=== PATIENT | female | born 1955 | race Caucasian/White ===

== ENCOUNTER 2023-01-31 15:33 | Emergency (ER) | payer MEDICARE, OTHER ==
[~2023-01-31] VITALS: Ht 160 cm; Wt 80.7 kg
[2023-01-31] MEDS ORDERED: NP THYROID 120120 MG (15:49)
[2023-01-31 19:41] LABS: BASOPHILS 0.9 % (0-2); EOSINOPHILS 4.8 % (0-6); HEMATOCRIT 44.9 % (35.0-50.0); HEMOGLOBIN 14.9 g/dL (12.0-18.0); LYMPHOCYTES 33.5 % (24-44); MCH 28.3 (27-36); MCHC 33.1 g/dl (30-36); MCV 85.5 fl (81-99); MONOCYTES 6.4 % (0-12); NEUTROPHILS 54.4 % (39-80); PLATELET COUNT 395 K/uL (140-440); RBC 5.25 M/ul (4.3-5.7)
[2023-01-31 19:54] LABS: ALBUMIN 3.6 g/dL (3.4-5.0); ALBUMIN/GLOBULIN RATIO 0.84 (1.1-2.4); ANION GAP 10.6 (7-21); BILIRUBIN, TOTAL 0.5 ng/dL (0.2-1.0); BUN/CREATININE RATIO 11.34 (6.0-28.6); CALCIUM 9.4 mg/dL (8.5-10.1); CREATININE, SERUM 0.97 mg/dL (0.55-1.02); POTASSIUM 3.6 mmol/L (3.5-5.1); PROTEIN, TOTAL 7.9 g/dL (6.4-8.2)
[2023-01-31 20:45] LABS: BILIRUBIN, URINE NEGATIVE (negative); BLOOD/HGB, URINE NEGATIVE (Negative); KETONE, URINE TRACE (Negative); LEUK ESTERASE, URINE SMALL (negative); NITRITE, URINE NEGATIVE (negative)
[2023-01-31 20:54] LABS: BACTERIA, URINE NONE SEEN /hpf (negative); CASTS, URINE NONE SEEN \\lpf; COLLECTION TYPE, URINE CLEAN CATCH; CRYSTALS, URINE NONE SEEN (0-1+); EPITHELIAL CELLS, URINE SQUAMOUS 1+ /lpf (0-1+); RED BLOOD CELLS, URINE 0-1 /hpf (0-5); REFLEX CULTURE, URINE No (No)
[2023-02-01 00:15] VITALS: BP 146/79
== END 2023-02-01 00:13 | disposition home or self-care (01) ==
LOC: ED 15:33
DX: K86.9 Disease of pancreas, unspecified (principal); E03.9 Hypothyroidism, unspecified; Z88.2 Allergy status to sulfonamides; Z88.5 Allergy status to narcotic agent; Z91.018 Allergy to other foods; Z91.041 Radiographic dye allergy status
CPT/HCPCS: 36415; 74177; 80053; 81001; 85025; 99284-25; J1200; Q9967

== ENCOUNTER 2023-10-05 21:57 | Observation (INO) | payer OTHER, MEDICARE ==
[~2023-10-05] VITALS: Ht 160 cm; Wt 88.0 kg
[~2023-10-05 21:57] MED LIST: NP THYROID 120120 MG PO
[2023-10-05 22:21] LABS: BASOPHILS 0.8 % (0-2); HEMOGLOBIN 13.8 g/dL (12.0-18.0); LYMPHOCYTES 19.6 % (24-44); MCH 27.8 (27-36); MCHC 33.6 g/dl (30-36); MCV 82.9 fl (81-99); MONOCYTES 5.3 % (0-12); NEUTROPHILS 72.3 % (39-80); PLATELET COUNT 399 K/uL (140-440); RBC 4.95 M/ul (4.3-5.7); RDW 13.3 (10.5-15.0)
[2023-10-05] MEDS ORDERED: HYDROmorphone HCL 1 MG/ML SYR IV PRN (22:30)
[2023-10-05] MEDS ORDERED: ondansetron HCL 4 MG/2 ML VIAL IV ONE (22:30)
[2023-10-05 22:47] LABS: ALBUMIN 3.1 g/dL (3.4-5.0); ALBUMIN/GLOBULIN RATIO 0.72 (1.1-2.4); ALCOHOL, MEDICAL <3 ng/dL (<3); ALKALINE PHOSPHATASE 84 U/L (46-116); ALT (SGPT) 29 U/L (14-59); ANION GAP 11.8 (7-21); AST (SGOT) 27 U/L (15-37); BILIRUBIN, TOTAL 0.3 ng/dL (0.2-1.0); BUN/CREATININE RATIO 11.02 (6.0-28.6); CARBON DIOXIDE 28 mmol/L (21-32); CHLORIDE 104 mmol/L (98-107); CREATINE KINASE 139 U/L (26-192); CREATININE, SERUM 1.27 mg/dL (0.55-1.02); GLOMERULAR FILTRATION RATE,EST 47 mL/min (>60); POTASSIUM 3.8 mmol/L (3.5-5.1); PROTEIN, TOTAL 7.4 g/dL (6.4-8.2); UREA NITROGEN 14 mg/dL (7-18)
[2023-10-05 22:59] LABS: ABO A; ANTIBODY SCREEN NEGATIVE; RH POSITIVE
[2023-10-06] VITALS (40 sets, daily range): BP systolic 96–151; BP diastolic 47–88
[2023-10-06] MEDS ORDERED: DIPHTH,PERTUSS(ACELL),TET VAC 0.5 ML SYRINGE IM ONE (00:30)
[2023-10-06] MEDS ORDERED: LACTATED RINGER'S 1,000 ML IV SCH (00:30)
[2023-10-06] MEDS ORDERED: ALBUTEROL/IPRATROPIUM 3 ML NEB INH PRN (01:45)
[2023-10-06] MEDS ORDERED: ondansetron HCL 4 MG/2 ML VIAL IV PRN (03:15)
[2023-10-06 03:22] LABS: BILIRUBIN, URINE NEGATIVE (negative); BLOOD/HGB, URINE MODERATE (Negative); KETONE, URINE TRACE (Negative); LEUK ESTERASE, URINE NEGATIVE (negative); NITRITE, URINE NEGATIVE (negative); PH, URINE 5.5 (5-7)
[2023-10-06 03:37] LABS: AMPHETAMINES, URINE NEGATIVE (NEGATIVE); BACTERIA, URINE RARE /hpf (negative); BARBITURATES, URINE NEGATIVE (NEGATIVE); BENZODIAZEPINE, URINE NEGATIVE (NEGATIVE); BUPRENORPHINE, URINE NEGATIVE (NEGATIVE); CANNABINOID, URINE NEGATIVE (NEGATIVE); CASTS, URINE HYALINE 1+ \\lpf; COCAINE, URINE NEGATIVE (NEGATIVE); COLLECTION TYPE, URINE CLEAN CATCH; CRYSTALS, URINE NONE SEEN (0-1+); ECSTASY, URINE NEGATIVE (NEGATIVE); EPITHELIAL CELLS, URINE SQUAMOUS 1+ /lpf (0-1+); FENTANYL, URINE NEGATIVE (NEGATIVE); METHADONE, URINE NEGATIVE (NEGATIVE); OPIATES, URINE POSITIVE (NEGATIVE); OXYCODONE, URINE NEGATIVE (NEGATIVE); PHENCYCLIDINE, URINE NEGATIVE (NEGATIVE); REFLEX CULTURE, URINE No (No)
[2023-10-06] MEDS ORDERED: dilTIAZem HCL 25 MG/5 ML VIAL IV ONE ×2 (03:45→04:30)
[2023-10-06] MEDS ORDERED: DILTIAZEM HCl/D5W 125 ML IV SCH (04:45)
[2023-10-06] MEDS ORDERED: droPERidol 5 MG/2 ML VIAL IV ONE (04:45)
[2023-10-06] MEDS ORDERED: FAMOTIDINE 20 MG/ 2 ML VIAL IV ONE (04:45)
[2023-10-06] MEDS ORDERED: niCARdipine HCL 50 MG in DEXTROSE 5% 250 ML IV SCH (04:45)
[2023-10-06 05:14] LABS: ANION GAP 13.7 (7-21); CALCIUM 8.4 mg/dL (8.5-10.1); MAGNESIUM 1.6 mg/dL (1.8-2.4); POTASSIUM 3.7 mmol/L (3.5-5.1)
[2023-10-06 05:14] LABS: EOSINOPHILS 0.1 % (0-6); HEMOGLOBIN 12.3 g/dL (12.0-18.0); RDW 13.3 (10.5-15.0)
[2023-10-06 05:16] LABS: BASOPHILS 0.5 % (0-2); HEMATOCRIT 37.4 % (35.0-50.0); LYMPHOCYTES 15.2 % (24-44); MCH 27.6 (27-36); MCV 83.7 fl (81-99); MONOCYTES 7.7 % (0-12); NEUTROPHILS 76.5 % (39-80); PLATELET COUNT 342 K/uL (140-440); RBC 4.47 M/ul (4.3-5.7)
[2023-10-06] MEDS ORDERED: MAGNESIUM SULFATE 2 GM/50 ML BAG IV ONE (05:30)
[2023-10-06] MEDS ORDERED: CALCIUM GLUCONATE 1,000 MG/10 ML VIAL IV ONE (05:30)
[2023-10-06] MEDS ORDERED: MAGNESIUM HYDROXIDE 30 ML UDC PO PRN (07:15)
[2023-10-06] MEDS ORDERED: ACETAMINOPHEN 500 MG TAB PO PRN (07:15)
[2023-10-06 07:46] LABS: CREATINE KINASE 388 U/L (26-192); TSH, 3RD GENERATION <0.007 uIU/mL (0.358-3.740)
[2023-10-06] MEDS ORDERED: BACLOFEN 10 MG TAB PO PRN (08:15)
--- NOTE | 2023-10-06 08:30 | NUR ---
REPORT RECEIVED FROM ED RN. PATIENT ORIENTED TO ROOM AND CALL LIGHT FUNCTIONS. SAFETY EDUCATION PROVIDED. PATIENT VERBALIZED UNDERSTANDING. SILVER COLORED RING WITH PURPLE COLORED STONE REMOVED FROM LEFT RING FINGER. PATIENT STATES SHE WILL HAVE FAMILY TAKE IT HOME. REPORTS FAMILY TOOK OTHER BELONGINGS EXCEPT CELL PHONE.
[2023-10-06] MEDS ORDERED: NP THYROID90 MG PO (08:37)
[2023-10-06] MEDS ORDERED: POTASSIUM REPLACEMENT PROTOCOL ORAL/IV PO SCH (09:00)
[2023-10-06] MEDS ORDERED: MAGNESIUM REPLACEMENT PROTOCOL ORAL/IV IV SCH (09:00)
[2023-10-06] MEDS ORDERED: PANTOPRAZOLE SODIUM 40 MG TABEC PO SCH (09:00)
[2023-10-06] MEDS ORDERED: LIDOCAINE HCL 4% 1 EACH PATCH TD SCH (09:00)
--- NOTE | 2023-10-06 09:00 | NUR ---
DR. PHILLIPS IN ROOM REVIEWING PLAN OF CARE WITH PATIENT. ORDER RECEIVED FOR NEURO CHECKS Q2H X2 THEN Q4. IF NORMAL, MAY GO TO ROUTINE NEURO CHECKS AT 20:00. ORDER RECEIVED FOR 20MG PO FAMOTADINE QD TO START TOMORROW 10/06.
--- NOTE | 2023-10-06 09:24 | NUR ---
US IN ROOM FOR ECHO.
--- NOTE | 2023-10-06 10:54 | NUR ---
PATIENT TO CT AND BACK. RHTHYM CHANGE NOTED ON TELEMETRY AT 1041 FROM AFIB TO SINUS RHYTHM IN THE 70S. EKG ORDERED FOR RHYTHM CHANGE. PATIENT VISITING WITH FAMILY AT BEDSIDE.
--- NOTE | 2023-10-06 11:05 | NUR ---
DR PHILLIPS NOTIFIED OF RHYTHM CONVERTION. ORDER RECEIVED TO LEAVE ON DILTIAZEM GTT UNTIL PO MEDICATION GIVEN. TO ORDER PO DILTIAZEM.
--- NOTE | 2023-10-06 11:13 | NUR ---
PT IN ROOM WITH PATIENT. FAMILY AT BEDSIDE. PATIENT DENIES PAIN CURRENTLY.
[2023-10-06] MEDS ORDERED: dilTIAZem HCL 30 MG TAB PO SCH (11:15)
--- NOTE | 2023-10-06 11:38 | NUR ---
PATIENT UP TO BR TO VOID WITH PT. VOIDED 400 ML DARK YELLOW URINE. TOLERATED ACTIVITY WELL. PATIENT USED FWW FOR STABILITY. FAMILY AT BEDSIDE.
[2023-10-06] MEDS ORDERED: PHARMACY RENAL DOSE ADJUSTMENT 1 DOSE MISC PO SCH (12:00)
--- NOTE | 2023-10-06 12:30 | NUR ---
REVIEWED PATIENT WITH DR. PHILLIPS. ORDER RECEIVED TO DC IVF.
--- NOTE | 2023-10-06 13:10 | NUR ---
FAMILY AT BEDSIDE. KITCHEN CALLED FOR LUNCH. PATIENT DENIES PAIN AT THIS TIME BUT REPORTS SHE CAN "FEEL MY HEAD", REFERRING TO THE INJURY TO HER SCALP. DENIES THROBBING OR ACHING. DENIES NEEDS. CALL LIGHT IN REACH.
--- NOTE | 2023-10-06 13:52 | EKG ---
[facility] [address] [facility] [place], [place] [address] Signed Normal sinus rhythm Normal ECG No previous ECGs available Confirmed by Natalie Vicente ([id number]) on 10/06/2023 1:52:00 PM Electronically Signed By: NATALIE VICENTE MD 10/06/23 1352 PATIENT NAME: SAM WHITEHEAD Jacqueline Electrocardiogram DATE OF : 59 PHYSICIAN: NATALIE VICENTE MD REPORT #: [id number] REPORT IS CONFIDENTIAL AND NOT TO BE RELEASED WITHOUT AUTHORIZATION
--- NOTE | 2023-10-06 13:52 | EKG ---
[facility] [address] [facility] [place] [address] Signed Atrial fibrillation with rapid ventricular response Nonspecific ST abnormality Abnormal ECG When compared with ECG of 05-OCT-2023 22:33, (Unconfirmed) Atrial fibrillation has replaced Sinus rhythm Vent. rate has increased BY 67 BPM Nonspecific T wave abnormality now evident in Inferior leads Confirmed by Natalie Vicente ([id number]) on 10/06/2023 1:52:09 PM Electronically Signed By: NATALIE VICENTE MD 10/06/23 1352 PATIENT NAME: SAM WHITEHEAD Jacqueline Electrocardiogram DATE OF : 59 PHYSICIAN: NATALIE VICENTE MD REPORT #: [id number] REPORT IS CONFIDENTIAL AND NOT TO BE RELEASED WITHOUT AUTHORIZATION
--- NOTE | 2023-10-06 13:59 | NUR ---
PATIENT DESIRES TO REST. HAS HAD MANY VISITORS THIS MORNING. REQUESTS TO REST AND HOLD OFF ANY VISITORS AT THIS TIME. REMAINS SINUS RHYTHM WITH HR IN THE 70S. IV FROM LEFT AC REMOVED AT PATIENT'S REQUEST SHE REPORTS PAIN AT SITE. CALL LIGHT IN REACH.
--- NOTE | 2023-10-06 14:42 | NUR ---
PATIENT RESTING IN BED WITH EYES CLOSED. RESPIRATIONS EVEN AND UNLABORED. REMAINS SINUS RHYTHM WITH HR IN THE 70S ON TELEMETRY. CALL LIGHT IN REACH.
--- NOTE | 2023-10-06 14:54 | NUR ---
MED REC COMPLETE
--- NOTE | 2023-10-06 15:36 | NUR ---
DR. PHILLIPS NOTIFIED OF BP TREND. NO NEW ORDERS AT THIS TIME. DILTIAZEM ORDER CONTAINS HOLD PARAMETERS. PATIENT CONTINUES TO REST AT THIS TIME. DAUGHTER AT BEDSIDE.
--- NOTE | 2023-10-06 16:00 | NUR ---
PATIENT WAKES EASILY FOR ASSESSMENT. DENIES PAIN OR NEEDS. DAUGHTER REMAINS AT BEDSIDE.
--- NOTE | 2023-10-06 17:15 | NUR ---
PATIENT OOBTBR TO VOID WITH GAIT BELT AND FWW. TOLERATED WELL. UP TO CHAIR AFTER BR. WARM WASHCLOTH PROVIDED, PATIENT INDEPENDENTLY WIPED FACE AND HANDS. SUPPER GIVEN. FAMILY AT BEDSIDE. CALL LIGHT IN REACH. PATIENT VERBALIZED UNDERSTANDING TO NOT GET UP WITHOUT NURSING ASSISTANCE.
--- NOTE | 2023-10-06 18:45 | NUR ---
PATIENT UP TO BR TO ATTEMPT TO HAVE A BM. NO BM AT THIS TIME. BACK TO CHAIR. FAMILY AT BEDSIDE. CALL LIGHT IN REACH.
--- NOTE | 2023-10-06 19:30 | NUR ---
PATIENT SITTING UP IN RECLINER, SHE IS ALERT AND ORIENTED. NO NEURO DEFICITS OON ASSESSMENT. HS MEDICATIONS ADMINISTERED WELL PROVIDED APPLESAUCE AND TYLENOL FOR PAIN 4/10 BACK.
[2023-10-06] MEDS ORDERED: LIDOCAINE PATCH REMOVAL 1 EA TD SCH (21:00)
[2023-10-06] MEDS ORDERED: MELATONIN 3 MG TAB PO PRN (21:00)
--- NOTE | 2023-10-06 21:00 | NUR ---
PATIENT PROVIDED ICE PACK FOR SHOULDER AND LEFT FLANK, SHE ALSO ASSISTED TO BED. HER SISTER IS PLANNING TO STAY NIGHT, PILLOWS AND BLANKETS PROVIDED. NO NEURO DEFICITS APPRECIATED WHILE WORKING WITH PATIENT.
--- NOTE | 2023-10-06 22:49 | NUR ---
PATIENT UP TO BEDSIDE COMMODE WITH ONE PERSON ASSIST AND FWW. PATIENT VOIDED 300ML CONCENTRATED URINE.
--- NOTE | 2023-10-06 23:10 | NUR ---
PATIENT ASSISTED BACK INTO BED, REPOSITIONED, NEW ICE PACKS X2 ONE FOR LEFT FLANK AND ONE FOR RIGHT SHOULDER. PATIENT REPORTS PAIN RELIEF WITH ICE PACKS. NUTRITIONAL NEEDS EDUCATION PROVIDED, PATIENT IS KNOWLEDGE ON NUTRITIONAL NEEDS, DISCUSSED RECOVERY WILL TAKE TIME FOR HEALING. PATIENT REPORTS NO OTHER NEEDS AT THIS TIME.
[2023-10-07] VITALS (7 sets, daily range): BP systolic 97–154; BP diastolic 52–73
--- NOTE | 2023-10-07 01:22 | NUR ---
PATIENT UP TO BATHROOM WITH FWW, MINIMAL STANDBY ASSIST. PATIENT HAS STEADY GAIT. VOIDED 350ML YELLOW/CLEAR URINE. BACK TO BED ICE PACKS PLACED TO LEFT FLANK/RIGHT SHOULDER AND SHE HAS A SMALL ICE PACK SHE HAS PLACED TO HEAD. PATIENT HAD DECLINED MELATONIN EARLIER, SHE NOWS IS INTERESTED IN TAKING. NO OTHER REQUESTS AT THIS TIME.
--- NOTE | 2023-10-07 02:02 | NUR ---
ROUNDING TO ADMINISTER 0200 CARDIZEM, PATIENT IS SLEEPING, ALERT TO NAME. SNACK PROVIDED WITH MEDICATIONS.
--- NOTE | 2023-10-07 05:26 | NUR ---
PATIENT CALLED NURSES STATION, THIS RN INTO ROOM, SHE IS REPORTING PAIN 10/10, NECK/SHOULDER/BACK. SHE SAID EVERYTHING HURTS TO MOVE. CALLED FOR MORE PAIN MANAGEMENT, PATIENT REPORTED SHE HAS TAKEN NORCO. NEW ORDER SEE EMAR
[2023-10-07] MEDS ORDERED: HYDROCODONE/ACETA 5/325 TAB PO PRN (05:30)
[2023-10-07 05:48] LABS: MCH 27.5 (27-36); RDW 13.5 (10.5-15.0)
[2023-10-07 05:53] LABS: BASOPHILS 1.4 % (0-2); EOSINOPHILS 4.6 % (0-6); HEMATOCRIT 36.2 % (35.0-50.0); HEMOGLOBIN 11.9 g/dL (12.0-18.0); LYMPHOCYTES 31.2 % (24-44); MCHC 32.9 g/dl (30-36); MCV 83.6 fl (81-99); MONOCYTES 7.7 % (0-12); NEUTROPHILS 55.1 % (39-80); PLATELET COUNT 314 K/uL (140-440); RBC 4.33 M/ul (4.3-5.7)
--- NOTE | 2023-10-07 05:53 | NUR ---
PATIENT UP TO BATHROOM ONE PERSON ASSIST, SHE MOANS AND GRIMACES WITH ACTIVITY. ZURI Dover RN IN ROOM ASSISTING, THIS RN INTO ROOM WITH NORCO PAIN MEDICATION HALF TAB. EDUCATION PROVIDED THAT THIS IS TO BE EXPECTED, AFTER SLEEPING OVER NIGHT AND NOT MOVING PATIENT IS GOING TO FEEL STIFF WITH INCREASED PAIN WITH FIRST ACTIVITY IN THE MORNING. SHE IS NOW SMILING AND VISITING WITH STAFF AND SISTER IN ROOM. PUDDING PROVIDED. FRESH WATER PROVIDED. PATIENT REPORTS SHE HAS SOME NORCO AT HOME THAT SHE TAKES OCCASSIONALLY FOR PAIN. FRESH ICE PACKS PROVIDED.
[2023-10-07 06:00] LABS: ANION GAP 11.7 (7-21); BUN/CREATININE RATIO 12.79 (6.0-28.6); CALCIUM 8.8 mg/dL (8.5-10.1); CREATININE, SERUM 0.86 mg/dL (0.55-1.02); MAGNESIUM 2.1 mg/dL (1.8-2.4); POTASSIUM 3.7 mmol/L (3.5-5.1)
--- NOTE | 2023-10-07 06:51 | NUR ---
PATIENT BACK TO ROOM AFTER CT SCAN, SHE REPORTS PAIN IS IMPROVING AFTER PAIN MEDICATION ADMINISTRATION. HER SISTER IS SITTING ON ROOM COUCH.
[2023-10-07] MEDS ORDERED: SODIUM CHLORIDE 0.9% 1,000 ML IV SCH ×2 (08:00→08:15)
--- NOTE | 2023-10-07 08:05 | NUR ---
Report received from Natalia JASON. Patient resting in bed, reports wanting to move to chair for breakfast. 1PA assist with FWW, patient moves slowly but steadily. Reports pain to L flank hematoma, ice pack applied. Denies need for pain medication at this time, states tolerable. Made plan for morning, patient agreeable.
[2023-10-07] MEDS ORDERED: FAMOTIDINE 20 MG TAB PO SCH (09:00)
[2023-10-07] MEDS ORDERED: NON-FORMULARY MEDICATION ORDER PO SCH (09:00)
[2023-10-07] MEDS ORDERED: THYROID 60 MG TAB PO SCH (09:00)
--- NOTE | 2023-10-07 09:05 | NUR ---
Call light answered, patient requests assistance to use BR. Patient able to transfer with 1PA and walk to BR, tolerates well. Voids 300ml UOP. Back to bed at this time.
[2023-10-07] MEDS ORDERED: BACLOFEN10 MG PO (09:39)
[2023-10-07] MEDS ORDERED: DILTIAZEM HCL30 MG PO (09:40)
[2023-10-07] MEDS ORDERED: HYDROCODON-ACE1 EA10 PO (09:49)
[2023-10-07] MEDS ORDERED: MIRALAX17 GM PO (09:50)
[2023-10-07] MEDS ORDERED: LIDOCAINE1 EACH TD (09:50)
--- NOTE | 2023-10-07 09:51 | NUR ---
PATIENT ALERT AND ORIENTED IN ROOM. FAMILY MEMBERS PRESENT. PHYSICAL ADDRESS IS [address] [place], [place], [address]. STATES SHE LIVES ALONE AT [place]. SHE HAS NO DME. PLANS TO DC WITH DAUGHTER AND GRANDDAUGHTER TO THEIR HOME FOR ASSISTANCE. STATES THERE WILL BE 5 STEPS TO GET INTO HOME, PT-ERENDIRA, NOTIFIED. PT RECOMMENDS WALKER. PATIENT STATES SHE PREFERS PRESCRIPTION FOR WALKER BE SENT TO [facility] AND FAMILY WILL PICK IT UP. DISCUSSED WAYS TO OBTAIN A SHOWER CHAIR WELL. PATIENT NORMALLY DRIVES, BUT WILL BE UNABLE SHE FEELS DUE TO INJURIES. FAMILY MAY BE ABLE TO ASSIST WITH TRANSPORTATION TO APPOINTMENTS, BUT MAY NOT BE AVAILABLE MULTIPLE TIMES A WEEK TO TRANSPORT HER TO THERAPIES. PATIENT DENIES ANY FINANCIAL HARDSHIP. DISCUSSED HOME HEALTH VS. OUTPATIENT PT. STATES SHE PREFERS PT FROM GROUP IN [place] AT [facility] IF POSSIBLE. DENIES OTHER NEEDS AT THIS TIME. INSTRUCTED WILL RETURN TO VERIFY INFORMATION IF NEEDED PRIOR TO DC.
--- NOTE | 2023-10-07 10:22 | NUR ---
FACESHEET, ORDERS AND NOTES FAXED TO [facility] AND [facility].
--- NOTE | 2023-10-07 10:35 | EKG ---
[facility] [address] [facility] [place] [address] Signed Normal sinus rhythm Normal ECG When compared with ECG of 06-OCT-2023 03:27, (Unconfirmed) Sinus rhythm has replaced Atrial fibrillation Vent. rate has decreased BY [address] no longer depressed in Anterior leads Confirmed by Natalie Vicente ([id number]) on 10/07/2023 10:35:28 AM Electronically Signed By: NATALIE VICENTE MD 10/07/23 1035 PATIENT NAME: SAM WHITEEHAD Electrocardiogram DATE OF : 59 PHYSICIAN: NATALIE VICENTE MD REPORT #: [id number] REPORT IS CONFIDENTIAL AND NOT TO BE RELEASED WITHOUT AUTHORIZATION
[2023-10-07] MEDS ORDERED: POTASSIUM CHLORIDE 10 MEQ TABCR PO ONE (11:00)
[2023-10-07] MEDS ORDERED: POTASSIUM CHLORIDE 10 MEQ/100 ML BAG IV SCH (11:00)
--- NOTE | 2023-10-07 11:24 | NUR ---
IN ROOM TO UPDATE PATIENT ON ORDERS FOR HOME HEALTH AND WALKER PRESCRIPTION. FURTHER QUESTIONS ANSWERED REGARDING DC PLAN. PATIENT AND FAMILY DENY FURTHER NEEDS AT THIS TIME.
--- NOTE | 2023-10-07 11:33 | NUR ---
UR CLINICAL REVIEW: 2 MN FOR VERSALUS-MEETS OBS CRITERIA MEDICARE OBS 10/05/23 @ 0714 ORDER MATCHES REG NO AUTH REQUIRED PER MEDICARE GUIDELINES. DISCHARGE TO HOME TODAY
== END 2023-10-07 12:36 | disposition home or self-care (01) ==
LOC: ED 21:57 → CCU 21:59
PROVIDERS: Internal Medicine; ADMIT Family Medicine; ATTEND Family Medicine
DX: S06.5X0A Traumatic subdural hemorrhage without loss of consciousness, initial encounter (principal); S42.101A Fracture of unspecified part of scapula, right shoulder, initial encounter for closed fracture; S01.01XA Laceration without foreign body of scalp, initial encounter; I48.91 Unspecified atrial fibrillation; E83.42 Hypomagnesemia; E83.51 Hypocalcemia; E03.9 Hypothyroidism, unspecified; Z88.2 Allergy status to sulfonamides; Z88.5 Allergy status to narcotic agent; Z88.8 Allergy status to other drugs, medicaments and biological substances; Z79.899 Other long term (current) drug therapy; W22.8XXA Striking against or struck by other objects, initial encounter
CPT/HCPCS: 12002; 36415; 70450; 70486; 71250; 71260; 72125; 73030; 74176; 74177; 80048; 80053; 80307; 81001; 82553; 83690; 83735; 84439; 84443; 84484; 85025; 86850; 86900; 86901; 93005; 93010; 93306; 94640; 97162; 97530; 99285-25; A9270; G0378; G0480; J0612; J1170; J1790; J2405; J3475; J7030; J7121; Q9967